=== PATIENT | female | born 1945 | race Caucasian/White ===

== ENCOUNTER 2018-04-29 05:47 | Emergency (ER) | payer OTHER, BC ==
[2018-04-29] MEDS: morphine 2 MG INJ IV (06:44)
[2018-04-29] MEDS: ONDANSETRON 4 MG INJ IV (06:45)
[2018-04-29] MEDS: morphine 4 MG/ML VIAL IV (07:00)
[2018-04-29] MEDS: BUPIVACAINE 0.5% (MPF) 10 ML VIAL INJ (07:26)
[2018-04-29] MEDS: LIDOCAINE 1%/EPI (MDV) 50 ML INJ INJ (07:26)
[2018-04-29] MEDS ORDERED: LIDOCAINE 1% (MDV) 20 ML INJ (07:35)
[2018-04-29] MEDS: LIDOCAINE 1% (MDV) 20 ML INJ SC (07:37)
[2018-04-29] MEDS ORDERED: LIDOCAINE 1%/EPI (1:100,000) (MDV) 20 ML INJ (08:00)
== END 2018-04-29 10:40 | disposition home or self-care (01) ==
LOC: E/R 05:47
DX: S52.572A Other intraarticular fracture of lower end of left radius, initial encounter for closed fracture (principal); I25.2 Old myocardial infarction; S00.83XA Contusion of other part of head, initial encounter; S52.612A Displaced fracture of left ulna styloid process, initial encounter for closed fracture; W10.9XXA Fall (on) (from) unspecified stairs and steps, initial encounter; Y92.9 Unspecified place or not applicable; Z98.61 Coronary angioplasty status; Z87.891 Personal history of nicotine dependence
CPT/HCPCS: 29125; 70450; 72125; 73090; 73110-LT; 96374; 99285-25